=== PATIENT | female | born 1955 | race Caucasian/White ===

== ENCOUNTER → 2020-12-13 | Outpatient (CLI) | payer MEDICARE, OTHER ==
[~2020-12-13] MED LIST: NORFLEX 100 MG100 MG PO; Voltaren Gel 1 % TOP
== END ==
LOC: KOH-I 10:11
DX: M16.11 Unilateral primary osteoarthritis, right hip (principal)
CPT/HCPCS: 73721

== ENCOUNTER → 2021-01-06 | Outpatient (CLI) | payer MEDICARE, OTHER | LOC: KOH-I 13:12 | DX: M19.071 Primary osteoarthritis, right ankle and foot (principal); R60.0 Localized edema | CPT/HCPCS: 73630 ==

== ENCOUNTER 2021-01-09 17:15 | Emergency (ER) | payer MEDICARE, OTHER ==
[2021-01-09] MEDS ORDERED: Voltaren Gel 1 % TOP (21:13)
[2021-01-09] MEDS ORDERED: NORFLEX 100 MG100 MG PO (21:13)
== END 2021-01-09 21:18 | disposition home or self-care (01) ==
LOC: ER1 17:15
DX: S20.211A Contusion of right front wall of thorax, initial encounter (principal); S80.01XA Contusion of right knee, initial encounter; I48.91 Unspecified atrial fibrillation; Z90.710 Acquired absence of both cervix and uterus; W17.89XA Other fall from one level to another, initial encounter
CPT/HCPCS: 29530; 71111; 73564; 99283

== ENCOUNTER → 2021-01-20 | Outpatient (CLI) | payer MEDICARE | LOC: KOH-I 08:56 | DX: R05 Cough (principal); R07.81 Pleurodynia; W19.XXXA Unspecified fall, initial encounter | CPT/HCPCS: 71046 ==

== ENCOUNTER → 2021-04-18 | Outpatient (CLI) | payer MEDICARE | LOC: LAB 13:14 | DX: Z51.81 Encounter for therapeutic drug level monitoring (principal); B35.1 Tinea unguium; Z79.899 Other long term (current) drug therapy | CPT/HCPCS: 36415; 80076 ==

== ENCOUNTER → 2021-05-15 | Outpatient (CLI) | payer MEDICARE | LOC: KOH-I 09:27 | DX: Z47.1 Aftercare following joint replacement surgery (principal); Z96.641 Presence of right artificial hip joint | CPT/HCPCS: 73502 ==

== ENCOUNTER → 2021-09-08 | Outpatient (CLI) | payer MEDICARE | LOC: KOH-I 15:39 | DX: M79.642 Pain in left hand (principal); M19.042 Primary osteoarthritis, left hand | CPT/HCPCS: 73130 ==

== ENCOUNTER → 2022-02-20 | Outpatient (CLI) | payer MEDICARE | LOC: KOH-I 14:47 | DX: M79.601 Pain in right arm (principal); M77.9 Enthesopathy, unspecified; M75.51 Bursitis of right shoulder | CPT/HCPCS: 73030; 73060 ==